=== PATIENT | male | born 1955 | race Two or more races ===

== ENCOUNTER 2020-07-04 13:42 | Emergency (ER) | payer OTHER ==
[~2020-07-04] VITALS: Ht 162.6 cm; Wt 68.0 kg
[2020-07-04] MEDS ORDERED: SINGULAIR10 MG PO (14:10)
[2020-07-04] MEDS ORDERED: ADVIL200 M1 PO (14:11)
[2020-07-04] MEDS ORDERED: ALBUTEROL0.63 MG/3 IH (14:11)
== END 2020-07-04 21:04 | disposition home or self-care (01) ==
LOC: ER 13:42
DX: R73.9 Hyperglycemia, unspecified (principal)